=== PATIENT | female | born 1990 | race Hispanic/Latino ===

== ENCOUNTER 2017-12-17 15:43 | Emergency (ER) | payer BC ==
[2017-12-17] MEDS ORDERED: METHYLPREDNISOLONE SOD SUCC 125MG/2ML VIAL ONE (16:05)
[2017-12-17] MEDS ORDERED: FAMOTIDINE 20MG TAB 20 MG TAB ONE (16:05)
[2017-12-17] MEDS ORDERED: DIPHENHYDRAMINE HCL 25 MG CAPSULE ONE (16:05)
== END 2017-12-17 17:09 | disposition home or self-care (01) ==
LOC: EDH 15:43
DX: T63.441A Toxic effect of venom of bees, accidental (unintentional), initial encounter (principal); T78.40XA Allergy, unspecified, initial encounter; Y92.89 Other specified places as the place of occurrence of the external cause
CPT/HCPCS: 96372; 99283; J2930; Q0163